=== PATIENT | male | born 1945 | race Caucasian/White ===

== ENCOUNTER → 2018-04-09 | Emergency (ER) | payer OTHER, MEDICARE ==
[~2018-04-09] VITALS: Ht 175.3 cm; Wt 80.0 kg
[~2018-04-09] MED LIST: MECL12.574 PO
[2018-04-09 09:19] VITALS: Ht 175.3 cm; Wt 80.0 kg
[2018-04-09 09:36] VITALS: BP 136/85; PULSE 75; RESP 19
--- NOTE | 2018-04-09 11:51 | ERD ---
ER Documentation Chief Complaint Chief Complaint dizziness 30 mins ago HPI Patient is a 72-year-old male with no medical problems who presents for dizziness. He was brought in by ambulance. He felt dizzy this morning but now has no symptoms. He feels back to his baseline. He said this episode lasted about 20 minutes and then stopped on its own. He has no slurred speech or weakness. He had no treatment as of yet. Upon review of old medical records this is the patient's first visit to the emergency department. He does have a primary doctor. ROS All systems reviewed and are negative except as per history of present illness. Medications Home Meds Active Scripts Meclizine Hcl* (Antivert*) 12.5 Mg Tab, 25 MG PO Q6H PRN for DIZZINESS, #20 TAB Prov:COSME CORONA MD 04/09/18 Allergies Allergies: Coded Allergies: No Known Allergy (Unverified , 04/09/18) PMhx/Soc Medical and Surgical Hx: pt denies Surgical Hx Hx Neurological Disorder: Yes (vertigo) Hx Alcohol Use: No Hx Substance Use: No Hx Tobacco Use: No Smoking Status: Never smoker FmHx Family History: No diabetes Physical Exam Vitals Vital Signs Date Temp Pulse Resp B/P (MAP) Pulse Ox O2 O2 Flow FiO2 Time Delivery Rate 04/09/18 98.1 75 19 136/85 100 Room Air 09:36 (102) 04/09/18 98.2 72 19 139/81 98 09:19 (100) Physical Exam Const: No acute distress Head: Atraumatic Eyes: Normal Conjunctiva ENT: Normal External Ears, Nose and Mouth. Neck: Full range of motion. No meningismus. Resp: Clear to auscultation bilaterally Cardio: Regular rate and rhythm, no murmurs Abd: Soft, non tender, non distended. Normal bowel sounds Skin: No petechiae or rashes Back: No midline or flank tenderness Ext: No cyanosis, or edema Neur: Awake and alert, cranial nerves II through XII intact, strength is 5 out of 5 in all 4 extremities, machine accountant strength is equal bilaterally, no slurred speech Psych: Normal Mood and Affect Procedures/MDM Patient is a 72-year-old male who presents with dizziness. His symptoms are consistent with acute vertigo. At this point his ABCD squared score is 2 putting him in a low risk category for TIA or stroke. I do not believe he requires further workup or admission in the hospital at this time. He does not want further workup either. He will be discharged home but should follow-up closely with his primary doctor within 24-48 hours. He can return for any worsening symptoms. Departure Diagnosis: Primary Impression: Vertigo Additional Impression: Dizziness Condition: Fair Patient Instructions: Dizziness, Unk Cause Referrals: Your doctor Additional Instructions: Call your primary care doctor TOMORROW for an appointment during the next 1-2 days.See the doctor sooner or return here if your condition worsens before your appointment time. COSME CORONA MD Apr 09, 2018 11:51
== END | disposition home or self-care (01) ==
LOC: E/R 09:11
DX: R42 Dizziness and giddiness (principal)
CPT/HCPCS: 99283